=== PATIENT | female | born 1960 | race Caucasian/White ===

== ENCOUNTER 2018-10-01 09:24 | Emergency (ER) | payer OTHER ==
[~2018-10-01] VITALS: Ht 165.1 cm; Wt 74.8 kg
[2018-10-01 10:21] LABS: URINE BILIRUBIN NEGATIVE (Negative); URINE BLOOD NEGATIVE (Negative); URINE CLARITY CLEAR; URINE COLOR YELLOW; URINE GLUCOSE-RANDOM* NEGATIVE (Negative); URINE KETONES NEGATIVE (Negative); URINE LEUKOCYTES-REFLEX NEGATIVE (Negative); URINE NITRITE-REFLEX NEGATIVE (Negative); URINE PROTEIN (DIPSTICK) NEGATIVE (Negative); URINE SPECIFIC GRAVITY 1.015 (1.005-1.035); URINE UROBILINOGEN 0.2 E.U./dl (0.2-1.0)
[2018-10-01 10:34] LABS: ABSOLUTE NEUTROPHILS 4.5 thou/uL (1.4-8.2); BASOPHILS 0.6 % (0.0-2.0); EOSINOPHILS 2.4 % (0.0-3.0); HEMATOCRIT 43.2 % (37.0-47.0); HEMOGLOBIN 15.1 gm/dL (12.0-15.0); LYMPHOCYTES 32.5 % (24.0-44.0); MCH 31.9 pg (26.0-34.0); MCHC 34.9 g/dL (28.0-37.0); MCV 91.3 fL (80.0-100.0); MONOCYTES 5.2 % (1.0-8.0); PLATELET COUNT 250 thou/uL (150-400); POLYS 59.3 % (36.0-66.0); RBC 4.73 mil/uL (4.20-5.00); RDW 12.5 % (10.5-14.5); WBC 7.6 thou/uL (4.0-11.0)
[2018-10-01 11:06] LABS: CALCIUM 9.7 mg/dL (8.5-10.1); CREATININE 0.5 mg/dL (0.6-1.0); POTASSIUM 4.4 mmol/L (3.5-5.1)
[2018-10-01 11:12] LABS: ALBUMIN 3.4 g/dL (3.4-5.0); TOTAL BILIRUBIN 0.6 mg/dL (<0.1-1.0); TOTAL PROTEIN 7.7 g/dL (6.4-8.2)
[2018-10-01] MEDS ORDERED: ZANTAC 150MG T150 MG PO (12:37)
[2018-10-01] MEDS ORDERED: PROBIOTIC1 EAC1 PO (12:39)
[2018-10-01] MEDS ORDERED: COLACE100 MG PO (12:39)
[2018-10-01 13:10] VITALS: BP 134/76
--- NOTE | 2018-10-01 16:44 | EKG ---
[address] [address] [place] [address] ELECTROCARDIOGRAM REPORT Name: MARIA LUISA PARRA Room #: DEP Heriberto#: [id number] ������������������ Admission: 10/01/18 ������������������ Attend Phys: Discharge: 10/01/18 ������������������ Date of : 60 Report #: [id number] ����������������������������������������������������������������� [id number] THIS REPORT FOR: //name// [facility] ED Test Date: 2018-10-01 Test Time: 10:37:35 Pat Name: MARIA LUISA PARRA Department: Room: Gender: F [employer] Manager: : 1960 Requested By: Kusum De Anda Order Number: [id number] MD: Fili Castañeda Measurements Intervals [place] Rate: 86 P: 7 MD: 187 QRS: 2 QRSD: 81 T: 46 QT: 364 QTc: 436 Interpretive Statements Sinus rhythm Probable left atrial enlargement Probable left ventricular hypertrophy Anterior Q waves, possibly due to LVH No previous ECG available for comparison Electronically Signed On 10-01-2018 16:44:33 [employer]OSS PULL[employer] by Fili Castañeda [email or web address] ��������������������������������������������� <ELECTRONICALLY SIGNED> ���������������������������������������� By: Fili Castañeda MD ��������������������������������������������� 10/01/18 1644 [facility] MD YARELY Becerra
== END 2018-10-01 13:16 | disposition home or self-care (01) ==
LOC: ER 09:24
PROVIDERS: Emergency Medicine; Nurse Practitioner Family
DX: K59.00 Constipation, unspecified (principal); I10 Essential (primary) hypertension; E11.9 Type 2 diabetes mellitus without complications